=== PATIENT | male | born 1980 | race Caucasian/White ===

== ENCOUNTER 2018-10-31 11:54 | Emergency (ER) | payer SELFPAY ==
--- NOTE | 2018-10-31 12:21 | EDM.PDOC ---
ED HPI GENERAL MEDICAL PROBLEM - General Chief Complaint: Abdominal Pain Stated Complaint: HERNIA Time Seen by Provider: 10/31/18 12:10 Source of Information: Reports: Patient History Limitations: Reports: No Limitations - History of Present Illness INITIAL COMMENTS - FREE TEXT/NARRATIVE: HISTORY AND PHYSICAL: History of present illness: Patient is a 38-year-old male who presents to the emergency room with complaints of a right inguinal hernia. He states that he noticed on Monday he had "Romel not rocket" he felt pain to his right groin which appeared to protrude. He denies any fever, chills, chest pain, shortness of breath or cough. Denies any abdominal pain, nausea, vomiting, diarrhea, constipation or dysuria. He has been able to eat and drink appropriately. Review of systems: As per history of present illness and below otherwise all systems reviewed and negative. Past medical history: As per history of present illness and as reviewed below otherwise noncontributory. Surgical history: As per history of present illness and as reviewed below otherwise noncontributory. Social history: See social history for further information Family history: As per history of present illness and as reviewed below otherwise noncontributory. Physical exam: General: Well-developed and well-nourished 30 H her old male. Alert and oriented. Nontoxic appearing and in no acute distress. HEENT: Atraumatic, normocephalic, pupils equal and reactive bilaterally, negative for conjunctival pallor or scleral icterus, mucous membranes moist, TMs normal bilaterally, throat clear, neck supple, nontender, trachea midline. No drooling or trismus noted. No meningeal signs. No hot potato voice noted. Lungs: Clear to auscultation, breath sounds equal bilaterally, chest nontender. Heart: S1S2, regular rate and rhythm without overt murmur Abdomen: Soft, nondistended, nontender. Negative for masses or hepatosplenomegaly. Negative for costovertebral tenderness. Pelvis: Stable nontender. Genitourinary: This was done with a holistic pulser at the bedside and consent of the patient. No testicular pain, erythema or swelling. He does have a small hernia along the right inguinal. At this time there is no hernia to be reduced. Rectal: Deferred. Skin: Intact, warm, dry. No lesions or rashes noted. Extremities: Atraumatic, negative for cords or calf pain. Neurovascular unremarkable. Neuro: Awake, alert, oriented. Cranial nerves II through XII unremarkable. Cerebellum unremarkable. Motor and sensory unremarkable throughout. Exam nonfocal. Notes: Physical exam was completed. Currently the hernia is not protruding. When he bears down and flexes can see a small area that does protrude. This soon as he relaxes the area does go We discussed how to reduce the hernia at home if he does have it protrude at a later time. Lab work is unremarkable. I spoke with Dr. Hutchison about this patient. He states that no imaging needs to be done at this time. Patient currently is pain-free. I will send him to see Dr. Hutchison on Monday , 11/06/18 for further evaluation and outpatient management. Signs and symptoms that would prompt him to return to the emergency room were reviewed and discussed. He voices understanding and is agreeable to plan of care. Denies any further questions or concerns at this time. Diagnostics: CBC, CMP, UA Therapeutics: None Prescription: None Impression: Inguinal Hernia, right Plan: 1. Avoid doing any strenuous activity where your hernia may protrude. If the hernia does pop out, please try to reduce it (push it back). If you're unable to reduce the hernia please return to the emergency room for evaluation. 2. We have set you up an appointment with Dr. Jackson at the [email or web address] on 11/06/2018 at 10:30am. 3. Return to the ED as needed and as discussed. Definitive disposition and diagnosis as appropriate pending reevaluation and review of above. Groin Pain Score (Numeric/FACES): 1 - Related Data Allergies Allergy/AdvReac Type Severity Reaction Status Date / Time amoxicillin Allergy Rash Verified 10/31/18 12:12 Home Meds: Home Meds . [No Known Home Meds] 10/31/18 [History] ED ROS GENERAL - Review of Systems Review Of Systems: ROS reveals no pertinent complaints other than HPI. ED EXAM, GI/ABD - Physical Exam Exam: See Below (See dictation) Course - Vital Signs Last Recorded V/S: Last Vital Signs Temp 97.1 F 10/31/18 12:12 Pulse 95 10/31/18 12:12 Resp 16 10/31/18 12:12 BP 137/82 10/31/18 12:12 Pulse Ox 99 10/31/18 12:12 - Orders/Labs/Meds Orders: Active Orders 24 hr Category Date Time Status CBC WITH AUTO DIFF [HEME] Stat Lab 10/31/18 12:21 Ordered COMPREHENSIVE METABOLIC PN,CMP [CHEM] Stat Lab 10/31/18 12:21 Ordered UA RFX DAISY AND CULT IF INDIC [URIN] Stat Lab 10/31/18 12:21 Ordered Departure - Departure Time of Disposition: 13:01 Disposition: Home, Self-Care 01 Clinical Impression: Inguinal hernia Qualifiers: Obstruction and gangrene presence: without obstruction or gangrene Laterality: unilateral Recurrence: non-recurrent Qualified Code(s): K40.90 - Unilateral inguinal hernia, without obstruction or gangrene, not specified as recurrent - Discharge Information Instructions: Inguinal Hernia, Adult, [id number] Referrals: PCP,None [Primary Care Provider] - Forms: ED Department Discharge Additional Instructions: The following information is given to patients seen in the emergency department who are being discharged to home. This information is to outline your options for follow-up care. We provide all patients seen in our emergency department with a follow-up referral. The need for follow-up, as well as the timing and circumstances, are variable depending upon the specifics of your emergency department visit. If you don't have a primary care physician on staff, we will provide you with a referral. We always advise you to contact your personal physician following an emergency department visit to inform them of the circumstance of the visit and for follow-up with them and/or the need for any referrals to a consulting specialist. The emergency department will also refer you to a specialist when appropriate. This referral assures that you have the opportunity for follow-up care with a specialist. All of these measure are taken in an effort to provide you with optimal care, which includes your follow-up. Under all circumstances we always encourage you to contact your private physician who remains a resource for coordinating your care. When calling for follow-up care, please make the office aware that this follow-up is from your recent emergency room visit. If for any reason you are refused follow-up, please contact the [facility] Emergency Department at and asked to speak to the emergency department charge nurse. [facility] Specialty Care - General Surgery [address], [address] [place] [address] 1. Avoid doing any strenuous activity where your hernia may protrude. If the hernia does pop out, please try to reduce it (push it back). If you're unable to reduce the hernia please return to the emergency room for evaluation. 2. We have set you up an appointment with Dr. Jackson at the [address] [place] [address] on 11/06/2018 at 10:30am. 3. Return to the ED as needed and as discussed. YOU ARE SCHEDULED TO SEE DR JACKSON ON 11/06/2018 AT 1030AM. HIS OFFICE IF LOCATED IN THE [address] [place] [address] 3RD FLOOR. ARRIVE 15 MINUTES EARLY AND REMEMBER TO BRING INSURANCE CARD AND ID IF APPLICABLE. - My Orders Last 24 Hours: My Active Orders 10/31/18 12:21 CBC WITH AUTO DIFF [HEME] Stat COMPREHENSIVE METABOLIC PN,CMP [CHEM] Stat UA RFX DAISY AND CULT IF INDIC [URIN] Stat - Assessment/Plan Last 24 Hours: My Active Orders 10/31/18 12:21 CBC WITH AUTO DIFF [HEME] Stat COMPREHENSIVE METABOLIC PN,CMP [CHEM] Stat UA RFX DAISY AND CULT IF INDIC [URIN] Stat
== END 2018-10-31 13:53 | disposition home or self-care (01) ==
LOC: MW.ED 11:54
DX: K40.90 Unilateral inguinal hernia, without obstruction or gangrene, not specified as recurrent (principal); F17.210 Nicotine dependence, cigarettes, uncomplicated; Z88.1 Allergy status to other antibiotic agents
CPT/HCPCS: 36415; 80053; 85025; 99283

== ENCOUNTER 2018-11-23 06:26 | Day surgery (SDC) | payer SELFPAY ==
[~2018-11-23 06:26] MED LIST: Lactated Ringers 1,000 ML IV SCH; Vancomycin 1.5 GM in Sodium Chloride 0.9% 500 ML IV SCH
--- NOTE | 2018-11-23 07:17 | PCM.PREANE ---
Preanesthetic Assessment - Anesthesia/Transfusion/Family Hx Anesthesia History: No Prior Anesthesia Family History of Anesthesia Reaction: No Transfusion History: No Prior Transfusion(s) - Review of Systems General: No Symptoms Pulmonary: No Symptoms Cardiovascular: No Symptoms Gastrointestinal: No Symptoms Neurological: No Symptoms Other: Reports: None - Physical Assessment NPO Status Date: 11/22/18 O2 Sat by Pulse Oximetry: 98 Respiratory Rate: 16 Vital Signs: Last Vital Signs Temp 97.7 F 11/23/18 06:45 Pulse 69 11/23/18 06:45 Resp 16 11/23/18 06:45 BP 139/84 11/23/18 06:45 Pulse Ox 98 11/23/18 06:45 Height: 5 ft 11 in Weight: 74.843 kg ASA Class: 1 Mental Status: Alert & Oriented x3 Airway Class: Mallampati = 1 Dentition: Reports: Normal Dentition ROM/Head Extension: Full Lungs: Clear to Auscultation, Normal Respiratory Effort Cardiovascular: Regular Rate, Regular Rhythm - Allergies Allergies/Adverse Reactions: Allergies Allergy/AdvReac Type Severity Reaction Status Date / Time amoxicillin Allergy Rash Verified 11/20/18 10:06 - Blood Blood Available: No - Anesthesia Plan Pre-Op Medication Ordered: None - Acknowledgements Anesthesia Type Planned: General Anesthesia Pt an Appropriate Candidate for the Planned Anesthesia: Yes Alternatives and Risks of Anesthesia Discussed w Pt/Guardian: Yes Pt/Guardian Understands and Agrees with Anesthesia Plan: Yes Additional Comments: PMH: none PLAN: get PreAnesthesia Questionnaire - Past Health History Medical/Surgical History: Denies Medical/Surgical History HEENT History: Reports: None Cardiovascular History: Reports: None Respiratory History: Reports: None Gastrointestinal History: Reports: None Genitourinary History: Reports: None Musculoskeletal History: Reports: Fracture Other Musculoskeletal History: hx fx collarbone Neurological History: Reports: None Psychiatric History: Reports: None Endocrine/Metabolic History: Reports: None Hematologic History: Reports: None Immunologic History: Reports: None Oncologic (Cancer) History: Reports: None Dermatologic History: Reports: None - Infectious Disease History Infectious Disease History: Reports: Chicken Pox - Past Surgical History Head Surgeries/Procedures: Reports: None - SUBSTANCE USE Smoking Status *Q: Current Every Day Smoker Tobacco Use Within Last Twelve Months: Cigarettes Recreational Drug Use History: No - HOME MEDS Home Medications: Home Meds . [No Known Home Meds] 10/31/18 [History] - CURRENT (IN HOUSE) MEDS Current Meds: Current Medications Lactated Ringer's (Ringers, Lactated) 1,000 mls @ 125 mls/hr IV ASDIRECTED JEANNETTE Last Admin: 11/23/18 06:50 Dose: 125 mls/hr Vancomycin HCl 1.5 gm/ Sodium (Chloride) 500 mls @ 333 mls/hr IV Q24H JEANNETTE
[2018-11-23] MEDS ORDERED: Lidocaine 2% 5 ML SDV ONE (07:20)
[2018-11-23] MEDS ORDERED: Ondansetron 4 MG/2 ML SDV ONE (07:20)
[2018-11-23] MEDS ORDERED: Rocuronium 10 MG/ML 10 ML Syringe ONE (07:20)
[2018-11-23] MEDS ORDERED: Midazolam 1 MG/ML 2 ML SDV ONE (07:21)
[2018-11-23] MEDS ORDERED: fentaNYL 250 MCG/5 ML SDV ONE (07:21)
[2018-11-23] MEDS ORDERED: Propofol 200 MG/20 ML SDV ONE (07:21)
[2018-11-23] MEDS ORDERED: Lidocaine 1% with EPINEPHrine 1:100,000 10 ML MDV ONE (07:25)
[2018-11-23] MEDS ORDERED: Bupivacaine 0.25%/EPINEPHrine 1:200,000 10 ML SDV ONE ×2 (07:26→09:38)
[2018-11-23] MEDS ORDERED: Octyl 2-Cyanoacrylate 1 Tube ONE (07:26)
[2018-11-23] MEDS ORDERED: Ketorolac 30 MG/ML SDV ONE (09:34)
--- NOTE | 2018-11-23 09:51 | PCM.OPNOTE ---
- General Post-Op/Procedure Note Date of Surgery/Procedure: 11/23/18 Operative Procedure(s): r ing hernia rep w mesh Findings: large direct and moderate indirect hernia, right; repair w small plug and mesh; [id number] Pre Op Diagnosis: r ing hernia Post-Op Diagnosis: Same Anesthesia Technique: General ET Tube Primary Surgeon: Carloz Jackson Pathology: hernia sac Complications: None Condition: Good
[2018-11-23] MEDS ORDERED: Acetaminophen/oxyCODONE 325-7.5 MG Tab PO PRN (09:53)
[2018-11-23] MEDS ORDERED: Naloxone 0.4 MG/ML Syringe IVPUSH PRN (09:58)
[2018-11-23] MEDS ORDERED: fentaNYL 100 MCG/2 ML SDV IVPUSH PRN (09:58)
[2018-11-23] MEDS ORDERED: 50% Dextrose in Water 50 ML Syringe IVPUSH PRN (09:58)
[2018-11-23] MEDS ORDERED: Albuterol 0.083% 2.5 MG/3 ML Neb Soln NEB PRN (09:58)
[2018-11-23] MEDS ORDERED: EPINEPHrine 1 MG/ML 30 ML MDV IVPUSH PRN (09:58)
[2018-11-23] MEDS ORDERED: Atropine 0.4 MG/ML 20 ML MDV IVPUSH PRN (09:58)
[2018-11-23] MEDS ORDERED: Atropine 0.4 MG/ML SDV IVPUSH PRN (09:58)
--- NOTE | 2018-11-23 10:11 | PCM.POSTAN ---
POST ANESTHESIA ASSESSMENT - MENTAL STATUS Mental Status: Alert, Oriented - RESPIRATORY Respiratory Status: Respiratory Rate WNL, Airway Patent, O2 Saturation Stable - CARDIOVASCULAR CV Status: Pulse Rate WNL, Blood Pressure Stable - GASTROINTESTINAL GI Status: No Symptoms - PAIN Pain Score: 0 - POST OP HYDRATION Hydration Status: Adequate & Stable
--- NOTE | 2018-11-23 10:59 | PCM48HPAN ---
Post Anesthesia Note - EVALUATION WITHIN 48HRS OF ANESTHETIC Vital Signs in Normal Range: Yes Patient Participated in Evaluation: Yes Respiratory Function Stable: Yes Airway Patent: Yes Cardiovascular Function Stable: Yes Hydration Status Stable: Yes Pain Control Satisfactory: Yes Nausea and Vomiting Control Satisfactory: Yes Mental Status Recovered: Yes Resp Rate: 16
[2018-11-23] MEDS ORDERED: Acetaminophen/HYDROcodone 325-10 MG Tab PO ONE (11:36)
--- NOTE | 2018-11-23 12:51 | OR ---
SURGEON: Carloz Jackson MD DATE OF PROCEDURE: 11/23/2018 PREOPERATIVE DIAGNOSIS: Right inguinal hernia. POSTOPERATIVE DIAGNOSIS: Right inguinal hernia. PROCEDURE PERFORMED: Repair with mesh. COMPLICATION: None. FINDINGS: The patient has a pretty large direct hernia and moderate-sized indirect hernia, so it is a pantaloon hernia and repaired with a small size plug. PROCEDURE IN DETAIL: The patient was taken to the operating room and placed in the supine position. Upon induction of general endotracheal anesthesia, the patient's groin and inguinal area were prepped and draped in a sterile fashion. The scrotum was placed on top of the drape in case it needed to be maneuvered. An IV antibiotic was given prophylactically and after assessment of appropriate landmark, a transverse skin incision was made two fingers above the inguinal crease. This was then carefully taken down past the Ricarda fascia and exposed the external oblique where the cord is. A small neisha was made right on top of the cord and then using a Metzenbaum scissors, carefully opened up the fiber along its direction all the way to the external ring. The spermatic cord was then carefully dissected from the inguinal canal. A [place] drain was then used to hold on to manipulate the cord and carefully dissect out from the inguinal floor. The cremasteric muscle was then opened up. Careful examined of the cord, dissected down the cremasteric muscle, a glistening whitish hernia sac in the medial anterior aspect of the floor, next to the cord, was located. The vas was identified and pushed aside to avoid damage. This was carefully dissected down all the way to the internal ring. The hernia sac was open up to examine if there was any hernia content; using a 2-0 silk, a purse string was placed to close the sac and the redundant part of the sac was amputated. A small plug was inserted into the direct hernia and followed with a mesh to reinforce the inguinal floor. The mesh was then anchored down by using 2-0 Prolene stitches to the periosteum of the pubic symphysis, then running down to the lateral aspect of the rectus muscle. The lateral part of the mesh was then anchored to the Rasta ligament, again using 2-0 Prolene. The last few stitches also anchored the plug to make sure the plug is not migrating. Where the cord exits out, a stitch was placed in the two tails to repair the internal ring. Upon conclusion of surgery, I used a finger to make sure the ring is not too tight and not too loose, followed with some irrigation. The external oblique was then repaired by use of 2-0 Vicryl and the recreation external ring was also tested, not too tight, not too loose, followed with 2-0 Vicryl and closed the Ricarda fascia and the skin stapled to approximate the skin, followed by appropriate dressing. The patient was then awakened, extubated and transferred to recovery room in a hemodynamically stable condition. The patient tolerated the procedure well. There were no intraoperative complications. Dr. Jackson was present through the whole procedure. Just before surgery, a timeout was called. The patient was identified and procedure identified and procedure started. As always, thank you for the kind referral. DAVID HARMON /[id number] ANJANA
== END 2018-11-23 12:43 | disposition home or self-care (01) ==
LOC: MW.SDS 06:26
PROVIDERS: ATTEND Surgery
DX: K40.90 Unilateral inguinal hernia, without obstruction or gangrene, not specified as recurrent (principal); F17.210 Nicotine dependence, cigarettes, uncomplicated; Z88.1 Allergy status to other antibiotic agents
CPT/HCPCS: 49505; A9270; J1885; J2001; J2250; J2405; J2704; J3010; J3370; J3490; J7040; J7120; 00840; 88302; C1781

== ENCOUNTER 2020-04-03 21:38 | Emergency (ER) | payer SELFPAY | END 2020-04-03 22:36 | disposition left against medical advice (07) | LOC: MW.ED 21:38 | DX: Z53.21 Procedure and treatment not carried out due to patient leaving prior to being seen by health care provider (principal) ==

== ENCOUNTER 2020-07-15 08:16 | Emergency (ER) | payer SELFPAY ==
[2020-07-15] MEDS ORDERED: Fluorescein 1 MG Ophth Strip EYELF ONE (08:34)
[2020-07-15] MEDS ORDERED: Tetracaine HCl/PF 0.5% 4 ML Bottle EYELF ONE (08:34)
--- NOTE | 2020-07-15 08:56 | EDM.PDOC ---
ED HPI GENERAL MEDICAL PROBLEM - General Chief Complaint: Eye Problems Stated Complaint: INJURY TO LT EYE Time Seen by Provider: 07/15/20 08:31 - History of Present Illness INITIAL COMMENTS - FREE TEXT/NARRATIVE: History of present illness: [] Patient presents with left eye pain. He states yesterday he was working on some hedges and he bent forward and accidentally poked himself in the left eye with a small branch. Progressively the eye became more painful throughout the night and now he is having fairly bad pain in the left eye vision is a little blurry it is painful to open his eyes he denies any other injuries blinking makes it worse being still makes it better. Review of systems: As per history of present illness and below otherwise all systems reviewed and negative. Past medical history: As per history of present illness and as reviewed below otherwise noncontributory. Surgical history: As per history of present illness and as reviewed below otherwise noncontributory. Social history: No reported history of drug or alcohol abuse. Family history: As per history of present illness and as reviewed below otherwise noncontributory. Physical exam: HEENT: Atraumatic, normocephalic, pupils reactive, negative for conjunctival pallor or scleral icterus, mucous membranes moist, throat clear, neck supple, nontender, trachea midline. The left conjunctive is injected and there is some tearing. The eyelids were everted there are no evidence of foreign body the patient was then examined under slit lamp there is a deep abrasion at approximately 530 below the iris on the cornea with fluorescein uptake. No other injuries or findings are noted. No foreign bodies are seen Lungs: Clear to auscultation, breath sounds equal bilaterally, chest nontender. Heart: S1S2, regular, negative for clicks, rubs, or JVD. Abdomen: Soft, nondistended, nontender. Negative for masses or hepatosplenomegaly. Negative for costovertebral tenderness. Pelvis: Stable nontender. Genitourinary: Deferred. Rectal: Deferred. Extremities: Atraumatic, negative for cords or calf pain. Neurovascular unremarkable. Neuro: Awake, alert, oriented. Cranial nerves II through XII unremarkable. Cerebellum unremarkable. Motor and sensory unremarkable throughout. Exam nonfocal. Diagnostics: [] Therapeutics: [] Impression: [] Plan: [] Definitive disposition and diagnosis as appropriate pending reevaluation and review of above. left eye Pain Score (Numeric/FACES): 7 - Related Data Allergies Allergy/AdvReac Type Severity Reaction Status Date / Time amoxicillin Allergy Rash Verified 07/15/20 08:21 Home Meds: Home Meds Gentamicin [Garamycin 0.3% Ophth Soln] 1 ml .XX TID #1 bottle 07/15/20 [Rx] Hydrocodone/Acetaminophen [[place] 5-325 Tablet] 1 each PO Q8HR #12 tablet 07/15/20 [Rx] Naproxen [Naprosyn] 500 mg PO Q12HR #20 tab 07/15/20 [Rx] Past Medical History - Past Health History Medical/Surgical History: Denies Medical/Surgical History HEENT History: Reports: None Cardiovascular History: Reports: None Respiratory History: Reports: None Gastrointestinal History: Reports: None Genitourinary History: Reports: None Musculoskeletal History: Reports: Fracture Other Musculoskeletal History: hx fx collarbone Neurological History: Reports: None Psychiatric History: Reports: None Endocrine/Metabolic History: Reports: None Hematologic History: Reports: None Immunologic History: Reports: None Oncologic (Cancer) History: Reports: None Dermatologic History: Reports: None - Infectious Disease History Infectious Disease History: Reports: Chicken Pox - Past Surgical History Head Surgeries/Procedures: Reports: None GI Surgical History: Reports: Hernia, Inguinal Social & Family History - Family History Family Medical History: Noncontributory - Tobacco Use Smoking Status *Q: Current Every Day Smoker Years of Tobacco use: 20 Packs/Tins Daily: 0.5 - Caffeine Use Caffeine Use: Reports: Coffee - Recreational Drug Use Recreational Drug Use: No ED ROS GENERAL - Review of Systems Review Of Systems: See Below ED EXAM GENERAL W FULL EYE - Physical Exam Exam: See Below Course - Vital Signs Last Recorded V/S: Last Vital Signs Temp 36.0 C L 07/15/20 09:22 Pulse 80 07/15/20 09:22 Resp 14 07/15/20 09:22 BP 128/93 H 07/15/20 09:22 Pulse Ox 100 07/15/20 09:22 - Orders/Labs/Meds Meds: Medications Discontinued Medications Generic Name Dose Route Start Last Admin Trade Name Freq PRN Reason Stop Dose Admin Diphtheria/Tetanus/Acell Pertussis 0.5 ml 07/15/20 09:09 07/15/20 09:17 Adacel IM 10/07/20 09:10 0.5 ml .ONCE ONE Administration Fluorescein Sodium 1 mg 07/15/20 08:34 07/15/20 09:04 Ful-Missy EYELF 07/15/20 08:35 1 mg ONETIME ONE Administration Tetracaine HCl 2 ml 07/15/20 08:34 07/15/20 09:04 Tetracaine 0.5% Steri-Unit Maritza EYELF 07/15/20 08:35 2 ml ASDIRECTED ONE Administration Departure - Departure Time of Disposition: 09:10 Disposition: Home, Self-Care 01 Condition: Good Clinical Impression: Corneal abrasion - Discharge Information *PRESCRIPTION DRUG MONITORING PROGRAM REVIEWED*: Not Applicable *COPY OF PRESCRIPTION DRUG MONITORING REPORT IN PATIENT BROCK: Not Applicable Prescriptions: Gentamicin [Garamycin 0.3% Ophth Soln] 1 ml .XX TID #1 bottle Naproxen [Naprosyn] 500 mg PO Q12HR #20 tab Hydrocodone/Acetaminophen [[place] 5-325 Tablet] 1 each PO Q8HR #12 tablet Instructions: Corneal Abrasion Referrals: PCP,None [Primary Care Provider] - Sebastian Marin MD [Ordering Only Provider] - Forms: ED Department Discharge Sepsis Event Note (ED) - Evaluation Sepsis Screening Result: No Definite Risk
[2020-07-15] MEDS ORDERED: Diphtheria,Pertussis(Acell),Tetanus Vaccine 0.5 ML Syringe IM ONE (09:09)
== END 2020-07-15 09:22 | disposition home or self-care (01) ==
LOC: MW.ED 08:16
DX: S05.02XA Injury of conjunctiva and corneal abrasion without foreign body, left eye, initial encounter (principal); F17.210 Nicotine dependence, cigarettes, uncomplicated; Z88.1 Allergy status to other antibiotic agents; Z23 Encounter for immunization; W22.8XXA Striking against or struck by other objects, initial encounter
CPT/HCPCS: 90471; 90715; 99282; 99283

== ENCOUNTER 2023-05-02 09:45 | Emergency (ER) | payer MEDICAID ==
[2023-05-02] MEDS ORDERED: Sodium Chloride 0.9% 2.5 ML Syringe FLUSH PRN (10:10)
[2023-05-02] MEDS ORDERED: Sodium Chloride 0.9% 10 ML Syringe FLUSH PRN (10:10)
[2023-05-02] MEDS ORDERED: Sodium Chloride 0.9% 1,000 ML IV ONE (10:11)
[2023-05-02] MEDS ORDERED: cefTRIAXone 1 GM in Sodium Chloride 0.9% 50 ML IV ONE (10:12)
[2023-05-02 11:14] LABS: BASOPHILS PERCENT AUTO 0.3 % (0.0-1.5); EOSINOPHILS ABSOLUTE AUTO 0.2 K/uL (0.0-0.7); EOSINOPHILS PERCENT AUTO 1.1 % (0.0-7.0); HEMOGLOBIN 12.8 g/dL (13.0-17.0); LYMPHOCYTES ABSOLUTE AUTO 1.7 K/uL (0.6-2.4); LYMPHOCYTES PERCENT AUTO 11.3 % (16.0-40.0); MEAN CORPUSCULAR HEMOGLOBIN 28.8 pg (27.0-32.0); MEAN CORPUSCULAR HGB CONC 33.7 g/dL (31.0-37.0); MEAN CORPUSCULAR VOLUME 85.4 fL (80.0-98.0); MONOCYTES PERCENT AUTO 6.3 % (0.0-15.0); NEUTROPHILS ABSOLUTE AUTO 12.5 K/uL (1.4-5.7); NRBC ABSOLUTE 0 K/uL; PLATELET COUNT,PLT 199 K/uL (150-400); RED BLOOD CELL COUNT 4.45 M/uL (4.50-5.90); WHITE BLOOD CELL COUNT,WBC 15.45 K/uL (4.0-11.0)
[2023-05-02 11:39] LABS: A/G RATIO 0.9 (0.9-1.6); ALBUMIN 3.4 g/dL (3.4-5.0); BILIRUBIN TOTAL 0.9 mg/dL (0.2-1.0); CALCIUM 8.7 mg/dL (8.5-10.1); CREATININE 1.1 mg/dL (0.8-1.3); EST CRCL DRUG DOSING (CG) 88.33 mL/min; POTASSIUM,K 4.2 mmol/L (3.5-5.1)
[2023-05-02 11:41] LABS: LACTIC ACID 0.5 mmol/L (0.4-2.0)
== END 2023-05-02 12:22 | disposition home or self-care (01) ==
LOC: MW.ED 09:45
DX: L03.116 Cellulitis of left lower limb (principal); F17.210 Nicotine dependence, cigarettes, uncomplicated; Z88.0 Allergy status to penicillin
CPT/HCPCS: 36415; 73590; 80053; 83605; 85025; 87040; 96365; 99283; J0696; J3490; J7030

== ENCOUNTER 2025-01-20 22:08 | Emergency (ER) | payer MEDICAID | END 2025-01-20 22:10 | disposition left against medical advice (07) | LOC: MW.ED 22:08 | DX: Z53.21 Procedure and treatment not carried out due to patient leaving prior to being seen by health care provider (principal) ==

== ENCOUNTER 2025-02-14 14:33 | Emergency (ER) | payer SELFPAY ==
[2025-02-14] MEDS ORDERED: Sodium Chloride 0.9% 2.5 ML Syringe FLUSH PRN (14:56)
[2025-02-14] MEDS ORDERED: Sodium Chloride 0.9% 10 ML Syringe FLUSH PRN (14:56)
[2025-02-14] MEDS: Morphine 4 MG/ML Syringe IVPUSH ONE (15:06)
[2025-02-14 15:07] LABS: BASOPHILS ABSOLUTE AUTO 0.02 K/uL (0.00-0.20); BASOPHILS PERCENT AUTO 0.1 % (0.0-1.0); HEMATOCRIT 40.5 % (42.0-52.0); HEMOGLOBIN 14.4 g/dL (14.0-18.0); IMMATURE GRAN ABSOLUTE AUTO 0.06 K/uL (0.00-0.05); IMMATURE GRAN PERCENT AUTO 0.3 % (0.0-0.4); LYMPHOCYTES ABSOLUTE AUTO 1.01 K/uL (1.00-4.80); LYMPHOCYTES PERCENT AUTO 5.2 % (24.0-44.0); MEAN CORPUSCULAR HEMOGLOBIN 29.2 pg (28.0-32.0); MEAN CORPUSCULAR HGB CONC 35.6 g/dL (32.0-36.0); MEAN CORPUSCULAR VOLUME 82.2 fL (83.0-99.0); MONOCYTES ABSOLUTE AUTO 0.41 K/uL (0.00-0.80); MONOCYTES PERCENT AUTO 2.1 % (0.0-8.0); NEUTROPHILS PERCENT AUTO 92.3 % (41.0-71.0); PLATELET COUNT,PLT 308 K/uL (150-400); RED BLOOD CELL COUNT 4.93 M/uL (4.52-5.90)
[2025-02-14] MEDS: Ondansetron 4 MG/2 ML SDV IVPUSH ONE ×2 (15:07→16:07)
[2025-02-14] MEDS: Sodium Chloride 0.9% 1,000 ML IV SCH (15:12)
[2025-02-14 15:36] LABS: A/G RATIO 1.3 (0.9-1.6); ALBUMIN 4.5 g/dL (3.4-5.0); BILIRUBIN TOTAL 1.4 mg/dL (0.2-1.0); CALCIUM 9.7 mg/dL (8.5-10.1); CARBON DIOXIDE,CO2 25.5 mmol/L (21.0-32.0); CREATININE 1.5 mg/dL (0.8-1.3); EST CRCL DRUG DOSING (CG) 64.21 mL/min; POTASSIUM,K 3.6 mmol/L (3.5-5.1); PROTEIN TOTAL,TP 7.9 g/dL (6.4-8.2)
[2025-02-14] MEDS: Ketorolac 30 MG/ML SDV IVPUSH ONE (15:43)
[2025-02-14] MEDS: Dicyclomine 10 MG Cap PO ONE (15:43)
[2025-02-14] MEDS: droPERidol 2.5 MG/ML SDV IVPUSH ONE (16:03)
[2025-02-14] MEDS: Promethazine 25 MG/ML SDV IM ONE (16:07)
[2025-02-14] MEDS: Iopamidol 755 MG/ML 500 ML Multipack Bottle IVPUSH STA (16:13)
[2025-02-14] MEDS: Famotidine 20 MG/2 ML SDV IVPUSH ONE (17:41)
== END 2025-02-14 17:59 | disposition home or self-care (01) ==
LOC: MW.ED 14:33
DX: K20.90 Esophagitis, unspecified without bleeding (principal); Z79.899 Other long term (current) drug therapy
CPT/HCPCS: 36415; 74177; 80053; 83690; 85025; 96361; 96374; 96375; 99284; A9270; J1790; J1885; J2270; J2405; J7030; Q9967; 99283